=== PATIENT | male | born 1980 | race Caucasian/White ===

== ENCOUNTER 2017-02-02 06:30 | Inpatient (IN) | payer OTHER ==
--- NOTE | ~2017-02-02 | DS ---
Unit #: [id number] #: [id number] Patient: ASHLEY SNATOS [id number] [address] [place], [place] [address] [id number] I MR#: [id number] NAME: ASHLEY SANTOS. ROOM: 231 Age: 36 Sex: M Admission Date: 02/02/2017 : 1980 Discharge Date: 02/04/2017 Attending Physician: Lance Tellez M.D. Primary Care Physician: Hector Batista M.D. DISCHARGE SUMMARY CHIEF COMPLAINT Abdominal pain. FURTHER DIAGNOSIS History of testicular cancer, status post orchiectomy and radiation. CONSULTANTS 1. Dr. Shaffre. 2. Dr. Romano/[facility]. PROCEDURES DONE None. HISTORY OF PRESENTING ILLNESS Patient is a 36-year-old, man with a past medical history of testicular cancer, status post orchiectomy. Presented initially to [facility] emergency room with a chief complaint of severe left upper quadrant abdominal pain. In the initial evaluation, the CT was showing a few lesions in the spleen concerning for mets versus hemangioma and, for further evaluation, patient was transferred here. HOSPITAL COURSE He was seen by oncology and surgery. He had a MRI of the abdomen and CT of the chest. CT of the chest did not show any metastasis. 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 Patient says his pain is becoming better. He was seen by surgery and surgery recommended no further intervention at this point. He will be discharged home in a stable condition. He does not have a primary care. I am requesting the nurses to provide him a list of primary care physicians for him to follow as an outpatient. He is doing clinically stable. I spoke with patient and his mother and he will be discharged home. PHYSICAL EXAMINATION On the date of the discharge, his physical examination: VITAL SIGNS: Temperature 97.4, pulse rate 66, respiratory rate 18, and blood pressure 105/59. GENERAL APPEARANCE: Patient is alert and oriented x3, lying in the bed in no acute distress. HEENT: Normocephalic and atraumatic. No icterus. PERRLA. Extraocular movements are intact. NECK: Supple. No JVD. HEART: S1 and S2 regular rate and rhythm. CHEST: (1) . Clear to auscultation. Unit #: [id number] #: [id number] Patient: ASHLEY SANTOS ABDOMEN: Soft and nontender. Bowel sounds present. EXTREMITIES: No edema. Normal pulses. DISCHARGE MEDICATIONS Prilosec 20 mg p.o. every day. DISCHARGE INSTRUCTIONS Follow up with primary care in 1-2 weeks. TOTAL TIME SPENT ON HIS CARE Twenty-eight minutes. Dictated by... Iris Orta/hortencia TD: 02/06/2017 06:17 JOB #: [id number] DISCHARGE SUMMARY Page 1 of 1 X X DISCHARGE SUMMARY
--- NOTE | ~2017-02-02 | HP ---
Unit #: [id number] #: [id number] Patient: ASHLEY SANTOS [id number] [address] [place], [place] [address] [id number] I MR#: [id number] NAME: ASHLEY SANTOS. ROOM: 231 Age: 36 Sex: M Admission Date: 02/02/2017 : 1980 Attending Physician: Lance Tellez M.D. Primary Care Physician: Hector Batista M.D. HISTORY AND PHYSICAL CHIEF COMPLAINT Abdominal pain. HISTORY OF PRESENTING ILLNESS The patient is a 36-year-old man with a past medical history of left testicular cancer, status post orchiectomy, history of radiation treatments in the past, substance abuse, presented initially to [facility] emergency room with a chief complaint of worsening of the abdominal pain in the right upper quadrant. For further evaluation and management, the patient is transferred here. In the emergency room, he had a CT of the abdomen done which showed numerous hypervascular lesions throughout the spleen of varying size which are nonspecific given their hypervascularity. The radiologist is concerned hemangioma doubt versus metastatic disease as differential diagnosis. Spleen size overall remains normal. There is no adenopathy in the abdomen or pelvis and no suspicious osseous lesion is identified. Normal unopacified GI tract and the rest of the CT of the abdomen is stable. For further evaluation and management, patient is transferred here. He denies any fevers, denies any chills, denies any cough, cold, shortness of breath. Complains of having severe abdominal pains. He mentions that he went to multiple emergency rooms where he was diagnosed with pancreatitis and begun on pain medications and discharged. Denies any diarrhea, denies any problem passing urine. PAST MEDICAL HISTORY 1. History of testicular cancer. 2. History of radiation and orchiectomy for the testicular cancer. SOCIAL HISTORY Denies smoking. Drinks alcohol socially. He mentions that he smokes weed occasionally but his tox screen is positive for cocaine, opiates, and vitamins and THC. FAMILY HISTORY Mother has diabetes. Father has pancreatic cancer and DVTs. REVIEW OF SYSTEMS Complete review of systems done, negative except for what is mentioned in the HPI. PHYSICAL EXAMINATION Unit #: [id number] #: [id number] Patient: ASHLEY SANTOS VITAL SIGNS: Temperature 98.5, pulse rate 59, respiratory rate 18, blood pressure 140/76. GENERAL: The patient is alert and oriented x3, lying in the bed, in no acute distress. HEENT: Normocephalic, atraumatic. No icterus. PERRLA. Extraoculars intact. NECK: Supple. No JVD. HEART: S1, S2. Bradycardic. CHEST: Bilateral equal air entry, clear to auscultation. ABDOMEN: Obese, soft. Mildly tender in the left upper quadrant. EXTREMITIES: No edema. No peripheral pulses. DIAGNOSTIC STUDIES LABORATORY: These are the labs done at [facility] emergency room - sodium 134, potassium 3.9, chloride 98, glucose 112, BUN 19, creatinine 1, AST 21, ALT 27, magnesium 1.67, alkaline phos. 78, WBC 10.2, hemoglobin 17.3, platelet count 252. UA shows trace protein, 40 ketones. Tox screen positive for amphetamines, cocaine, opiates, cannabinoids. Serum alcohol less than 5. IMAGING: CT abdomen as mentioned earlier. ASSESSMENT AND PLAN 1. Abdominal pain: Possibly due to splenic mets versus hemangiomata. Will request general surgery and oncology to evaluate. Will give him p.r.n. analgesics. Will keep him on IV fluids and monitor. 2. Substance abuse: Counseled him to quit doing drugs. Will also check a hepatitis panel, HIV serology and 2D echo to evaluate for endocarditis, mainly to rule out any splenic mets or splenic emboli coming from any endocarditis or other focus of infection. Will consult oncology. 3. Bradycardia: Blood pressures are stable. He is asymptomatic. Will monitor. 4. DVT precautions. 5. Further recommendations per hospital course. Dictated by Iris Orta TD: 02/02/2017 11:38 JOB #: [id number] Unit #: [id number] #: [id number] Patient: ASHLEY SANTOS HISTORY AND PHYSICAL Page 1 of 1 X X HISTORY AND PHYSICAL
--- NOTE | ~2017-02-02 | CT55 ---
[facility] A Service of [facility] RADIOLOGY TEXT RESULTS PATIENT: ASHLEY SANTOS LOCATION: [facility] : [birth year] UNIT #: [id number] AGE: [address]: Lance Tellez MD SEX: M ORDER DR: [id number] [facility] [address]. [place], [place] [address] [id number] I MR#: [id number] Acc #: [id number] NAME: ASHLEY SANTOS : 1980 SEX: M STUDY DATE/TIME: 02/02/2017 18:00 UNIT: [facility] ROOM: [facility] STUDY DESCRIPTION: CT Chest W Con Attending Physician: Lance Tellez M.D. Ordering Physician: Zoila Shaffer M.D. Primary Care Physician: Hector Batista M.D. MEDICAL IMAGING REPORT This report is preliminary unless electronic signature is present EXAM CT chest with contrast. HISTORY Chest and abdominal pain, onset today. History of testicular cancer. TECHNIQUE Axial images performed through the chest following IV contrast. Sagittal and coronal reconstructed images were performed at a workstation. This CT exam was performed with one or more of the following radiation dose reduction techniques: automatic exposure control, adjustment of mA and/or kV according to patient size, and iterative reconstruction. FINDINGS The pulmonary parenchyma is normal. No effusions. Trachea bronchi appear normal. Normal enhancement of the pulmonary arteries. No evidence of embolus. Heart size within normal limits. Aorta free of dissection or aneurysm. No significant adenopathy. The visualized upper abdomen degraded due to motion artifact but no abnormalities. The visualized thoracic spine and thoracic inlet appears normal. IMPRESSION Normal CT chest with contrast. Dictated by... Saul Bledsoe M.D. [facility] A Service [facility] RADIOLOGY TEXT RESULTS PATIENT: ASHLEY SANTOS LOCATION: [facility] : 76 UNIT #: [id number] AGE: [address]: Lance Tellez MD SEX: M ORDER DR: THIS IS AN ELECTRONICALLY VERIFIED REPORT Saul Bledsoe M.D. at 02/03/2017 10:59 PM Jenny TD: 02/02/2017 23:16 JOB #: [id number] MEDICAL IMAGING REPORT Page 1 of 1 COPY
--- NOTE | ~2017-02-02 | MR2 ---
[facility] A Service of [facility] RADIOLOGY TEXT RESULTS PATIENT: ASHLEY SANTOS LOCATION: C2A 231-01 : [birth year] UNIT #: [id number] AGE: [address]: Lance Tellez MD SEX: M ORDER DR: [id number] [facility] [address] [place], [place] [address] [id number] I MR#: [id number] Acc #: [id number] NAME: ASHLEY SANTOS. : 1980 SEX: M STUDY DATE/TIME: 02/02/2017 17:12 UNIT: C2 ROOM: [facility] STUDY DESCRIPTION: MR Abdomen WWo Cont Attending Physician: Lance Tellez M.D. Ordering Physician: Zoila Shaffer M.D. Primary Care Physician: Hector Batista M.D. MRI CENTER REPORT This report is preliminary unless electronic signature is present. EXAM MR abdomen with and without contrast INDICATIONS Splenic mass. HISTORY Testicular cancer status post orchiectomy and radiation therapy. TECHNIQUE Multiplanar MRI of the abdomen with and without IV contrast (20 mL MultiHance IV contrast). COMPARISON CT abdomen dated 02/02/2017, 02/14/2016, 01/12/2016 and 09/18/2014. FINDINGS The spleen is normal in size measuring 11 cm in length. There are multiple hypervascular lesions within the spleen (at least 10 to 15). The largest lesion is in the inferior spleen measuring 2 x 1.7 cm. In retrospect, this lesion is unchanged from 2014 were it measured 2.3 x 1.7 cm. A second index lesion in the midportion of the spleen measures 1.6 cm, previously 1.6 cm. These lesions are all hypervascular on early phase imaging and persistent enhancement throughout the portal venous and delayed phase imaging. The lesions are isointense to background splenic parenchyma on the precontrast weighted sequences. Given the stability and the overall imaging appearance these are most consistent with benign hemangiomas. The liver, gallbladder, pancreas, adrenal glands, and kidneys are within normal limits. There is no enlarged retroperitoneal or mesenteric lymph nodes. The bowel is not dilated. No abnormal bone marrow signal. [facility] A Service of [facility] RADIOLOGY TEXT RESULTS PATIENT: ASHLEY SANTOS LOCATION: [facility] 231-01 : [birth year] UNIT #: [id number] AGE: [address]: Lance Tellez MD SEX: M ORDER DR: IMPRESSION 1. Multiple hypervascular lesions throughout the spleen. In retrospect, these lesions are unchanged from at least August 2014. Given the temporal stability and overall imaging appearance, these are most consistent with benign hemangiomas. 2. Otherwise, the exam is negative. Dictated by... Mauro Amaro M.D. THIS IS AN ELECTRONICALLY VERIFIED REPORT Mauro Amaro M.D. at 02/03/2017 9:39 AM MELLISSA/joseph TD: 02/03/2017 07:43 JOB #: [id number] MRI CENTER REPORT Page 1 of 1 COPY
--- NOTE | ~2017-02-02 | CO ---
Unit #: [id number] #: [id number] Patient: ASHLEY SANTOS [id number] [address] [place], [place] [address] [id number] I MR#: [id number] NAME: ASHLEY SANTOS. ROOM: 231 Age: 36 Sex: M Admission Date: 02/02/2017 : 1980 Attending Physician: Lance Tellez M.D. Primary Care Physician: Hector Batista M.D. Consultation Date: 02/02/2017 CONSULTATION REPORT REASON FOR CONSULTATION Left upper quadrant pain. HISTORY OF PRESENT ILLNESS Thank you very much for asking us to see Mr. Santos. He is a 36-year-old white male, whose past medical history is remarkable for diagnosis of left testicular cancer in 2005. He underwent a left orchiectomy and had an intraabdominal lymph node dissection. He had postoperative radiation therapy as well. He was treated at [facility] in [place]. He had been doing well until approximately 18 and 24 months ago. He states he has had intermittent left upper quadrant pain. It is a crampy type of pain with sharp exacerbations. He has had some nausea, but no vomiting. He denies any GI bleeding. He has had no or pulmonary symptoms. His weight has been stable and his appetite has been good. He presents at this time for further evaluation and treatment. ALLERGIES No known medical allergies. MEDICATIONS Please see med rec sheet. PAST MEDICAL HISTORY Testicular cancer. PAST SURGICAL HISTORY Left orchiectomy, intraabdominal lymph node dissection, left shoulder surgery. SOCIAL HISTORY Positive for tobacco use. Positive for alcohol use and recreational drug use. REVIEW OF SYSTEMS Negative except for above. IMMUNIZATION STATUS Unknown. FAMILY HISTORY Noncontributory. PHYSICAL EXAMINATION Unit #: [id number] #: [id number] Patient: ASHLEY SANTOS GENERAL: Well-developed, well-nourished white male, in no apparent distress. VITAL SIGNS: Afebrile. Vital signs stable. NECK: Supple. No thyromegaly or adenopathy. BACK: No CVA or spinous tenderness. ABDOMEN: Soft, flat, mild to moderate tenderness in the left upper quadrant, but no rebound, peritoneal signs, or masses. Well-healed midline incision. EXTREMITIES: No calf tenderness. No erythema. DIAGNOSTIC STUDIES LABORATORY RESULTS: Reveal normal CBC, CMP, and lipase. IMAGING STUDIES: CT scan of the abdomen AND pelvis revealed no abnormalities other than multiple nodular lesions present within the spleen suspicious for metastatic disease. IMPRESSION In light of his history of testicular cancer and possible metastatic disease of the spleen, we await the opinion of Hematology/Oncology. If they do not feel this is the source of his pain, he may need upper and possibly lower endoscopy for evaluation. Dictated by... Iris Little/ramon TD: 02/03/2017 05:23 JOB #: [id number] CC: [facility] CONSULTATION REPORT Page 1 of 1 X Butch Romano MD X CONSULTATION REPORT
--- NOTE | ~2017-02-02 | CO ---
Unit #: [id number] #: [id number] Patient: ASHLEY SANTOS [id number] [address] [place], [place] [address] [id number] Obdulia MR#: [id number] NAME: ASHLEY SANTOS. ROOM: 231 Age: 36 Sex: M Admission Date: 02/02/2017 : 1980 Attending Physician: Lance Tellez M.D. Primary Care Physician: Hector Batista M.D. CONSULTATION REPORT CHIEF COMPLAINT History of left testicular cancer. No sign of disease. Hemangioma in the spleen. HISTORY OF PRESENT ILLNESS This is a 36-year-old male who was diagnosed with left-sided testicular cancer in 2004. He was diagnosed in [facility]. We do not have records. According to him, he was started on radiation for lymphadenopathy. It progressed. As a result, the patient had extensive lymph node dissection. At present, he has no sign of disease. The patient came with left upper quadrant pain. The patient had a CT of the abdomen and pelvis. There was some suspicious mass in the spleen. I ordered MRI of the liver on 02/02/2017. It is a hemangioma. No metastatic disease. His CT of the chest is normal. Today's CBC showed WBC 10.7, hemoglobin 14.9 and platelets 202. Creatinine 0.8. LFTs are normal. Iron studies are normal. Patient has complained of left upper quadrant pain. PAST MEDICAL HISTORY Testicular cancer, left orchiectomy, lymph node dissection. No sign of disease. Now, hemangioma in the spleen. PAST SURGICAL HISTORY Left testicle orchiectomy, lymph node dissection, hernia, shoulder surgery. SOCIAL HISTORY The patient used to smoke two packs per day for 10 years and denies alcohol abuse. He uses marijuana. I am not sure about his drug history. FAMILY HISTORY Father had pancreatic cancer. He was about 63 years old. ALLERGIES None. REVIEW OF SYSTEMS CONSTITUTIONAL: No fever, no chills, no sweats, no weight loss. EYES: No visual symptoms. EARS, NOSE AND THROAT: There is no runny nose or sore throat or Unit #: [id number] #: [id number] Patient: ASHLEY SANTOS difficulty hearing. CARDIOVASCULAR: No chest pain. No shortness of breath. No palpitations. No orthopnea. No PND. RESPIRATORY: No cough. No wheezing. No hemoptysis. GASTROINTESTINAL: As mentioned above. Left upper quadrant pain. GENITOURINARY: No urinary frequency, hesitancy or urgency. No blood in the urine. MUSCULOSKELETAL: No muscle or joint pain. NEUROLOGIC: No headache. No numbness or tingling. No weakness. No seizure. PSYCHIATRIC: No anxiety, depression or mood disturbance. ENDOCRINE: No excessive urination or thirst. DERMATOLOGIC: No rash or change in the skin. ALLERGIC/IMMUNOLOGIC: No symptoms. HEMATOLOGIC/LYMPHATIC: Denies any symptoms. PHYSICAL EXAMINATION GENERAL: Patient is comfortable. ECOG is 0. The patient is pleasant. VITAL SIGNS: Afebrile. Pulse 80. Respiratory rate 18. O2 sat on room air 100%. Blood pressure 136/86. HEENT: Moist mucosa. Pupils equally reactive to light. Extraocular muscles intact. Sclerae anicteric. No obvious bleeding from nasal mucosa or oral mucosa. Scalp normal. Hearing normal. NECK: No JVD. No lymphadenopathy. LYMPHATIC/HEMATOLOGIC: There is no palpable adenopathy in the neck, axilla or inguinal area. CARDIOVASCULAR: S1, S2. Regular rate and rhythm. No S3 or S4. RESPIRATORY: Chest symmetrical, normal. Clear to auscultation bilaterally. No wheezes, no rales, no rhonchi. No dullness to percussion. ABDOMEN/GASTROINTESTINAL: Abdomen is soft, nontender, nondistended. No hepatosplenomegaly. Left upper quadrant pain. EXTREMITIES: There is no clubbing, no cyanosis, no edema. No varicose veins. NEUROLOGICAL: Patient is alert, awake and oriented x3. Cranial nerves II-XII are intact. Sensory grossly intact. Motor is 4/5 in all four extremities. Gait is normal. Station is normal. Language is normal. Memory is normal. DTRs +2 in all four extremities. MUSCULOSKELETAL: No joint swelling. No bony tenderness. No muscle tenderness. SKIN: No petechiae, no rash, no ecchymosis. PSYCHIATRIC: No anxiety. No delusions or hallucinations. There is no agitation. Eye contact is normal. Affect is appropriate. There is no flight of ideas. DIAGNOSTIC STUDIES Labs and imaging studies mentioned above. ASSESSMENT/PLAN This is a 36-year-old male with the following active issues: 1. Testicular cancer: He was diagnosed in 2004. He was treated at [facility]. The patient had left orchiectomy. The patient had lymph node dissection. Radiation did not work. He never received chemotherapy. At present, he has no sign of disease. 2. Spleen: He has multiple hemangioma. It has been stable since 2003. No intervention. 3. Pain: I am not sure about etiology of pain. It will be managed by the primary care. Unit #: [id number] #: [id number] Patient: ASHLEY SANTOS Dictated by... rIis Carlson/lizzette TD: 02/03/2017 12:33 JOB #: [id number] CONSULTATION REPORT Page 1 of 1 X Zoila Shaffer MD X CONSULTATION REPORT
[2017-02-02 16:44] LABS: HEMATOCRIT 45.8 % (38.0-50.0); HEMOGLOBIN 15.3 gm/dL (13.0-16.0); MEAN CELL VOLUME 91.7 FL (83-96); MEAN CORPUSCULAR HEMOGLOBIN 30.6 PG (28-34); MEAN CORPUSCULAR HGB CONC 33.4 g/dL (30-36); MEAN PLATELET VOLUME 7.8 FL (6.5-11.5); RED BLOOD COUNT 4.99 X10e (3.90-5.60); RED CELL DISTRIBUTION WIDTH 13.3 % (11.0-15.5); WHITE BLOOD COUNT 7.8 X10e3 (4.0-10.5)
[2017-02-02 17:01] LABS: BUN/CREATININE RATIO 17.77; CALCIUM SERUM 8.8 mg/dL (8.4-10.2); CREATININE SERUM 0.9 mg/dL (0.6-1.4); POTASSIUM 4.3 mmol/L (3.5-5.1)
[2017-02-03 07:50] LABS: HEMATOCRIT 44.5 % (38.0-50.0); HEMOGLOBIN 14.9 gm/dL (13.0-16.0); MEAN CELL VOLUME 91.4 FL (83-96); MEAN CORPUSCULAR HEMOGLOBIN 30.7 PG (28-34); MEAN CORPUSCULAR HGB CONC 33.6 g/dL (30-36); MEAN PLATELET VOLUME 8.2 FL (6.5-11.5); RED BLOOD COUNT 4.87 X10e (3.90-5.60); RED CELL DISTRIBUTION WIDTH 13.3 % (11.0-15.5); WHITE BLOOD COUNT 10.7 X10e3 (4.0-10.5)
[2017-02-03 08:34] LABS: ALBUMIN SERUM 4.3 g/dL (3.5-5.0); BILIRUBIN,TOTAL 0.7 mg/dL (0.2-2.0); BUN/CREATININE RATIO 17.5; CREATININE SERUM 0.8 mg/dL (0.6-1.4); GLOM FILT RATE Estimated 113.4 mL/min (>60); POTASSIUM 4.1 mmol/L (3.5-5.1)
[2017-02-03 09:09] LABS: FERRITIN 190 ng/mL (24-336)
[2017-02-03 15:05] LABS: HA AB IGM (HEPPAN) Nonreactive (()); HB CORE AB IGM (HEPPAN) Nonreactive (Nonreactive); HB S AG (HEPPAN) Nonreactive (Nonreactive); HEP C AB (HEPPAN) Nonreactive (Nonreactive); HEP C AB SIGNAL TO CUTOFF 0.02 ratio (<1.00)
[2017-02-04 08:28] LABS: ALBUMIN SERUM 3.8 g/dL (3.5-5.0); BILIRUBIN,TOTAL 0.6 mg/dL (0.2-2.0); BUN/CREATININE RATIO 14.28; CALCIUM SERUM 8.7 mg/dL (8.4-10.2); CREATININE SERUM 0.7 mg/dL (0.6-1.4); GLOM FILT RATE Estimated 119.8 mL/min (>60); POTASSIUM 4.2 mmol/L (3.5-5.1); PROTEIN TOTAL SERUM 6.2 g/dL (6.0-8.3)
[2017-02-04] MEDS ORDERED: PRILOSEC PO (14:11)
== END 2017-02-04 14:58 | disposition home or self-care (01) | DRG 392 ==
LOC: C2A 06:30
PROVIDERS: Internal Medicine; Internal Medicine Hematology
PROC: B24BZZZ Ultrasonography of Heart with Aorta (ICD-10-PCS; principal; 2017-02-02)
DX: D18.03 Hemangioma of intra-abdominal structures (principal); R00.1 Bradycardia, unspecified; F17.210 Nicotine dependence, cigarettes, uncomplicated; F15.10 Other stimulant abuse, uncomplicated; F14.10 Cocaine abuse, uncomplicated; F11.10 Opioid abuse, uncomplicated; F12.10 Cannabis abuse, uncomplicated; Z85.47 Personal history of malignant neoplasm of testis; Z92.3 Personal history of irradiation; Z90.79 Acquired absence of other genital organ(s); Z83.3 Family history of diabetes mellitus; Z80.0 Family history of malignant neoplasm of digestive organs
CPT/HCPCS: 71260; 74183; 80048; 80053; 80074; 82607; 82728; 83540; 83550; 83615; 85027; 87040; 87806; 93306; A9577; J2270; J2405; Q9967